=== PATIENT | female | born 2000 | race African-American/Black ===

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

== ENCOUNTER 2020-12-29 17:03 | Emergency (ER) | payer MEDICAID, OTHER ==
[~2020-12-29] VITALS: Ht 162.6 cm; Wt 63.5 kg
[~2020-12-29 17:03] MED LIST changes: -PREN-153 OR; +PREN1TAB71 OR
[2020-12-29] MEDS ORDERED: SODIUM CHLORIDE 0.9% 1,000 ML IVB ONE (17:30)
[2020-12-29 17:47] LABS: Basophils # (auto) 0.1 10 ^3/uL (0-0.2); Basophils % (auto) 0.7 % (0.0-2.0); Eosinophils # (auto) 0 10 ^3/uL (0-0.8); Eosinophils % (auto) 0.1 % (0.0-7.0); Hemoglobin 11.2 g/dL (12.2-16.2); Lymphocytes # (auto) 1.5 10 ^3/uL (0.4-5.4); Mean Corpuscular Hemoglobin 28.9 pg (28.0-32.0); Mean Corpuscular Hgb Conc. 33.9 g/dL (32.0-36.0); Mean Corpuscular Volume 85.2 fL (80.0-100.0); Monocytes # (auto) 0.7 10 ^3/uL (0-1.3); Monocytes % (auto) 9.1 % (0.0-12.0); Neutrophils # (auto) 5.4 10 ^3/uL (1.6-8.6); Neutrophils % (auto) 70.1 % (37.0-80.0); Nucleated Red Blood Cells % 0.1 %; Red Blood Cells 3.87 10^6/uL (4.0-5.20); Red Cell Distribution Width 13.9 % (11.8-14.3); White Blood Cell 7.7 10^3/uL (4.4-10.8)
[2020-12-29 18:07] LABS: Albumin 3.2 g/dL (3.4-5.0); Calcium 8.1 mg/dL (8.5-10.1); Magnesium 1.8 mg/dL (1.6-2.6); Potassium 3.3 mmol/L (3.5-5.1)
[2020-12-29 18:12] LABS: Bilirubin, Total 0.4 mg/dL (0.2-1.0); Total Protein 7.3 g/dL (6.4-8.2)
[2020-12-29] MEDS ORDERED: PROMETHAZINE HCL 25 MG/ML 1ML IV ONE (19:30)
[2020-12-29] MEDS ORDERED: SODIUM CHLORIDE 0.9% 2,000 ML IV ONE (21:00)
[2020-12-29 22:04] VITALS: BP 101/70
== END 2020-12-29 20:29 | disposition home or self-care (01) ==
LOC: ER 17:03 → EDBD 17:03 → ER 20:29
DX: O43.112 Circumvallate placenta, second trimester (principal); O23.42 Unspecified infection of urinary tract in pregnancy, second trimester; O21.8 Other vomiting complicating pregnancy; Z79.899 Other long term (current) drug therapy; Z3A.21 21 weeks gestation of pregnancy
CPT/HCPCS: 36415; 76805; 80053; 83735; 85025; 96361; 96374; 99284; J2550; J7030

== ENCOUNTER 2022-10-15 04:15 | Emergency (ER) | payer MEDICAID ==
[~2022-10-15] VITALS: Ht 167.6 cm; Wt 59.0 kg
[2022-10-15] MEDS ORDERED: ACET-1158 PO (04:29)
[2022-10-15] MEDS ORDERED: AZIT250T9 PO (04:29)
[2022-10-15] MEDS ORDERED: ACETAMINOPHEN 325 MG TAB PO ONE (04:30)
[2022-10-15 05:13] VITALS: BP 106/78
== END 2022-10-15 05:16 | disposition home or self-care (01) ==
LOC: ER 04:15
DX: J02.9 Acute pharyngitis, unspecified (principal); Z79.2 Long term (current) use of antibiotics; Z79.899 Other long term (current) drug therapy